=== PATIENT | female | born 1950 | race Caucasian/White ===

== ENCOUNTER 2025-03-05 13:45 | Emergency (ER) | payer OTHER ==
[~2025-03-05] VITALS: Ht 154.9 cm; Wt 59.0 kg
[~2025-03-05 13:45] MED LIST: CIPRO500 MG PO; CRESTOR10 MG; DEPAKOTE ER500 MG; PROSOM2 MG; ZETIA10 MG
[2025-03-05] MEDS ORDERED: GRALISE600 MG PO (14:12)
[2025-03-05] MEDS ORDERED: TOPAMAX50 MG PO (14:12)
[2025-03-05] MEDS ORDERED: PLAVIX75 MG PO (14:13)
[2025-03-05] MEDS ORDERED: TRAMADOL HCL E100 M1 PO (14:16)
[2025-03-05] MEDS ORDERED: ACID REDUCER20 M1 PO (14:17)
[2025-03-05] MEDS ORDERED: DULOXETINE HCL60 MG PO (14:18)
[2025-03-05] MEDS ORDERED: ALENDRONATE SOD70 MG PO (14:18)
[2025-03-05] MEDS ORDERED: MIRTAZAPINE15 M1 PO (14:19)
[2025-03-05 17:59] LABS: HEMATOCRIT 37.1 % (36.0-45.00); MEAN CELL VOLUME 97.4 fL (80.00-100.00); MEAN CORPUSCULAR HEMOGLOBIN 31.5 pg (27.00-32.0); MEAN CORPUSCULAR HGB CONC 32.4 g/dl (32.0-36.0); PLATELET COUNT 320 K/uL (150-450); RED BLOOD COUNT 3.81 M/uL (4.00-6.00); RED CELL DISTRIBUTION WIDTH 15.5 % (11.5-14.5)
[2025-03-05 18:19] LABS: INR 1.05; PARTIAL THROMBOPLASTIN TIME 25.8 SECONDS (22.0-34.0); PROTHROMBIN TIME 11.4 SECONDS (9.0-11.5)
[2025-03-05 18:30] LABS: ALBUMIN 3.3 gm/dL (3.4-5.0); BILIRUBIN TOTAL 0.27 mg/dL (0.3-1.2); CALCIUM 9.3 mg/dL (8.5-10.1); CREATININE SERUM 1.01 mg/dL (0.55-1.02); GFR 53.73; GLOBULINA 3.1 G/DL (2.4-3.5); POTASSIUM 4.96 mEq/L (3.5-5.1); TOTAL PROTEIN 6.4 gm/dL (6.4-8.2)
[2025-03-05] MEDS ORDERED: CIPRO500 MG PO (19:14)
[2025-03-05] MEDS ORDERED: PEPCID AC20 MG PO (19:14)
== END 2025-03-05 19:27 | disposition home or self-care (01) ==
LOC: ER 13:45
PROVIDERS: General Practice
DX: S89.81XA Other specified injuries of right lower leg, initial encounter (principal); W18.39XA Other fall on same level, initial encounter; Y93.89 Activity, other specified; Y92.89 Other specified places as the place of occurrence of the external cause; Y99.8 Other external cause status; R55 Syncope and collapse; M25.561 Pain in right knee; Z88.0 Allergy status to penicillin